=== PATIENT | female | born 1965 | race American Indian/Alaskan Native ===

== ENCOUNTER 2022-05-12 22:41 | Emergency (ER) | payer MEDICAID ==
[2022-05-13] MEDS ORDERED: ONDANSETRON 4 MG/2 ML INJ IV ONE (04:52)
[2022-05-13 05:02] LABS: Basophils % (Auto) 0.5 % (0.0-1.8); Eosinophils % (Auto) 0.4 % (0.0-4.3); Hemoglobin 10.1 gm/dl (10.1-14.3); Lymphocytes # (Auto) 0.5 K/mm3 (1.2-5.4); Lymphocytes % (Auto) 5.7 % (13.4-35.0); Mean Corpuscular HGB Conc 34 % (30-34); Mean Corpuscular Volume 91 fl (79-97); Monocytes # (Auto) 0.7 K/mm3 (0.0-0.8); Monocytes % (Auto) 7.5 % (0.0-7.3); Platelet Count 687 K/mm3 (140-440); Red Blood Count 3.29 M/mm3 (3.65-5.03); Red Cell Distribution Width 18.2 % (13.2-15.2)
[2022-05-13 05:23] LABS: Bacteria,Urine 4+ /HPF (Negative); Mucus,Urine 1+ /HPF
[2022-05-13 05:26] LABS: Bilirubin,Urine Negative (Negative); Blood,Urine 2+ (Negative); Color,Urine Straw (Yellow); Protein,Urine 300 mg/dL mg/dL (Negative)
[2022-05-13 06:30] LABS: Albumin 3.9 g/dL (3.9-5); BUN/Creatinine Ratio 11; Blood Urea Nitrogen 15 mg/dL (7-17); Calcium 9.6 mg/dL (8.4-10.2); Hemolysis Index 2
[2022-05-13 06:36] LABS: Alanine Aminotransferase < 5 units/L (7-56)
[2022-05-13] MEDS ORDERED: cefTRIAXone/NS 1 GM/50 ML 1 GM/50 ML BAG IV ONE (06:37)
[2022-05-13] MEDS ORDERED: SODIUM CHLORIDE 0.9% 500 ML 500 ML IV ONE (06:37)
[2022-05-13] MEDS ORDERED: FAMOTIDINE 20 MG/2 ML INJ IV ONE (06:38)
[2022-05-13] MEDS ORDERED: SODIUM CHLORIDE 0.9% 1000 ML 1,000 ML IV ONE (07:58)
[2022-05-13] MEDS ORDERED: LORazepam 2 MG/ML VIAL IV ONE (08:00)
--- NOTE | 2022-05-13 10:15 | Emergency Department Report ---
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 Patient has had decreased appetite for last 2 weeks with vomiting and p.o. intolerance x1 week. She also reports a lot of belching and GERD symptoms. Mild lower abdominal pain reported without aggravating or alleviating factors. Decreased bowel movements reported. She denies fever or hematemesis. Patient received Zofran prior to my evaluation and reports improvement in nausea and vomiting. Patient has not had chemotherapy in the last 5 to 6 weeks and is not currently undergoing any active cancer treatment. Patient's doctors are affiliated with [facility]. Patient is scheduled for PET scan on May 23. - Related Data Previous Rx's Medication Instructions Recorded Last Taken Type Famotidine [Pepcid] 20 mg PO BID #60 tablet 05/13/22 Unknown Rx Ondansetron [Zofran Odt] 4 mg PO Q8HR PRN #20 tab.rapdis 05/13/22 Unknown Rx Promethazine [Phenergan] 25 mg CO Q6HR PRN #20 supp.rect 05/13/22 Unknown Rx cefUROXime [Ceftin] 500 mg PO Q12H 7 Days tab 05/13/22 Unknown Rx Allergies Allergy/AdvReac Type Severity Reaction Status Date / Time Sulfa (Sulfonamide Allergy Unknown Verified 05/13/22 00:10 Antibiotics) ED Review of Systems ROS: Stated complaint: ACID REFLUX/LOSS OF APPETITE Other details as noted in HPI Comment: All other systems reviewed and negative ED Past Medical Hx - Past Medical History Previous Medical History?: Yes Hx of Cancer: Yes (CERVICAL CANCER) - Surgical History Past Surgical History?: Yes Additional Surgical History: 03/14/2022 hysterectomy, bladder resection with urostomy diversion secondary to bladder fistula - Social History Smoking Status: Unknown if ever smoked Substance Use Type: None - Medications Home Medications: Home Medications Medication Instructions Recorded Confirmed Last Taken Type Famotidine [Pepcid] 20 mg PO BID #60 tablet 05/13/22 Unknown Rx Ondansetron [Zofran Odt] 4 mg PO Q8HR PRN #20 tab.rapdis 05/13/22 Unknown Rx Promethazine [Phenergan] 25 mg CO Q6HR PRN #20 supp.rect 05/13/22 Unknown Rx cefUROXime [Ceftin] 500 mg PO Q12H 7 Days tab 05/13/22 Unknown Rx ED Physical Exam - General Limitations: No Limitations - Other Other exam information: General: No acute distress Head: Atraumatic Eyes: normal appearance ENT: Moist mucous membranes Neck: Normal appearance, no midline tenderness Chest: Clear to auscultation bilaterally CV: Regular rate and rhythm Abdomen: Soft, normal bowel sounds, mild suprapubic tenderness, nondistended, no rebound or guarding. Urostomy with clear urine Back: Normal inspection Extremity: Normal inspection, full range of motion Neuro: Alert O x 3, no facial asymmetry, speech clear, no gross motor sensory deficit Psych: Appropriate behavior Skin: No rash ED Course Vital Signs 05/12/22 05/13/22 05/13/22 23:58 04:53 05:01 Temperature 98.6 F Pulse Rate 89 86 89 Respiratory 16 15 23 Rate Blood Pressure 129/78 137/78 Blood Pressure 129/78 137/86 [Right] O2 Sat by Pulse 100 98 99 Oximetry 05/13/22 05/13/22 05/13/22 05:31 06:01 06:31 Temperature Pulse Rate 88 84 85 Respiratory 17 17 19 Rate Blood Pressure 137/78 143/68 143/68 Blood Pressure [Right] O2 Sat by Pulse 99 98 98 Oximetry 05/13/22 05/13/22 05/13/22 07:01 07:31 08:01 Temperature Pulse Rate 82 90 88 Respiratory 16 23 20 Rate Blood Pressure 133/71 133/71 132/76 Blood Pressure [Right] O2 Sat by Pulse 99 99 99 Oximetry 05/13/22 05/13/22 05/13/22 08:31 09:01 09:31 Temperature Pulse Rate 84 84 85 Respiratory 14 22 16 Rate Blood Pressure 132/76 128/72 128/72 Blood Pressure [Right] O2 Sat by Pulse 100 99 99 Oximetry 05/13/22 05/13/22 05/13/22 10:01 10:51 11:01 Temperature Pulse Rate 86 99 H 98 H Respiratory 17 23 17 Rate Blood Pressure 119/57 119/57 119/57 Blood Pressure [Right] O2 Sat by Pulse 98 97 Oximetry 05/13/22 05/13/22 05/13/22 11:31 12:01 12:31 Temperature Pulse Rate 76 88 84 Respiratory 14 17 20 Rate Blood Pressure 119/57 119/57 119/57 Blood Pressure [Right] O2 Sat by Pulse 97 100 100 Oximetry 05/13/22 05/13/22 13:01 13:31 Temperature Pulse Rate 90 83 Respiratory 19 19 Rate Blood Pressure 119/57 119/57 Blood Pressure [Right] O2 Sat by Pulse 99 99 Oximetry - Consultations Consultation #1: 05/13/22 12:26 case d/w [facility] transfer service ([facility]). They are on diversion. awaiting food photographer onc call back for consult 1:39 case d/w [facility] awaiting food photographer onc call back 05/13/22 14:32 Case d/w Dr Borrego food photographer/onc at [facility] (reviewed Elia record in [facility]) who suggest possible thoracentiss for pleural effusion to hasten accumulation. Suggests f/u with pt's oncologist if symptoms improved. ED Medical Decision Making - Lab Data Result diagrams: 05/13/22 04:46 05/13/22 Unknown Lab Results 05/13/22 05/13/22 05/13/22 Range/Units 04:46 04:53 Unknown WBC 9.6 (4.5-11.0) K/mm3 RBC 3.29 L (3.65-5.03) M/mm3 Hgb 10.1 (10.1-14.3) gm/dl Hct 30.0 L (30.3-42.9) % MCV 91 (79-97) fl MCH 31 (28-32) pg MCHC 34 (30-34) % RDW 18.2 H (13.2-15.2) % Plt Count 687 H (140-440) K/mm3 Lymph % (Auto) 5.7 L (13.4-35.0) % [place] % (Auto) 7.5 H (0.0-7.3) % Eos % (Auto) 0.4 (0.0-4.3) % Baso % (Auto) 0.5 (0.0-1.8) % Lymph # (Auto) 0.5 L (1.2-5.4) K/mm3 [place] # (Auto) 0.7 (0.0-0.8) K/mm3 Eos # (Auto) 0.0 (0.0-0.4) K/mm3 Baso # (Auto) 0.0 (0.0-0.1) K/mm3 Seg Neutrophils % 85.9 H (40.0-70.0) % Seg Neutrophils # 8.2 H (1.8-7.7) K/mm3 Sodium 134 L (137-145) mmol/L Potassium 4.0 (3.6-5.0) mmol/L Chloride 96.8 L (98-107) mmol/L Carbon Dioxide 22 (22-30) mmol/L Anion Gap 19 mmol/L BUN 15 (7-17) mg/dL Creatinine 1.4 H (0.6-1.2) mg/dL Estimated GFR 39 ml/min BUN/Creatinine Ratio 11 % Glucose 91 (65-100) mg/dL Calcium 9.6 (8.4-10.2) mg/dL Total Bilirubin 0.70 (0.1-1.2) mg/dL AST 10 (5-40) units/L ALT < 5 L (7-56) units/L Alkaline Phosphatase 57 (35-129) units/L Total Protein 7.2 (6.3-8.2) g/dL Albumin 3.9 (3.9-5) g/dL Albumin/Globulin Ratio 1.2 % Lipase 12 L (13-60) units/L Urine Color Straw (Yellow) Urine Turbidity Cloudy (Clear) Urine pH 7.0 (5.0-7.0) Ur Specific [place] 1.010 (1.003-1.030) Urine Protein 300 mg/dl (Negative) mg/dL Urine Glucose (UA) Negative (Negative) mg/dL Urine Ketones 15 (Negative) mg/dL Urine Blood 2+ (Negative) Urine Nitrite Negative (Negative) Ur Reducing Substances Not Reportable Urine Bilirubin Negative (Negative) Urine Ictotest Not Reportable Urine Urobilinogen 1.0 (<2.0) mg/dL Ur Leukocyte Esterase Large (Negative) Urine WBC (Auto) 166.0 H (0.0-6.0) /HPF Urine RBC (Auto) 23.0 (0.0-6.0) /HPF U Epithel Cells (Auto) 1.0 (0-13.0) /HPF Urine Bacteria (Auto) 4+ (Negative) /HPF Urine Mucus 1+ /HPF - Radiology Data Radiology results: report reviewed CT ABDOMEN AND PELVIS WITH CONTRAST HISTORY: abd pain, n/v, urostomy, cervical ca, s/p hysterct. COMPARISON: None TECHNIQUE: Helical CT images of the abdomen and pelvis were obtained following administration of intravenous contrast. Sagittal and coronal reformatted images were reviewed. All CT scans at this location are performed using CT dose reduction for ALARA by means of automated exposure control. CONTRAST: Omnipaque 350 100 ml of intravenous contrast administered. FINDINGS: Abdomen/pelvis: There is moderate ascites in the upper abdomen which appears to be loculated. No evidence for free air. Hysterectomy changes are suspected. The bladder is not confidently identified. The bladder may be collapsed or surgically removed. Please correlate with history. There is moderate bilateral hydronephrosis with no obvious obstructing lesion in the distal ureters. The renal parenchyma is unremarkable on CT. There are scattered cysts in the liver with the largest measuring 2.9 cm and the left hepatic lobe. No parenchymal liver disease or focal mass. There is moderate sludge and at least 2 small calcified gallstones in the gallbladder. No findings to suggest acute cholecystitis. The biliary ducts are unremarkable. The pancreas, spleen and adrenal glands are unremarkable. There is no evidence for bowel obstruction, focal inflammation or obvious mass. Diverting ileostomy is suspected in the right lower quadrant. Please correlate with surgical history. The vascular structures are patent. No adenopathy is identified. Lungs/bones: Moderate to large layering right pleural effusion and trace left pleural effusion are identified. Atelectatic changes are noted at the right lung base. No obvious infiltrate or nodule. Heart size is normal. No suspicious bony lesion is detected. IMPRESSION: Moderate ascites is identified throughout the upper abdomen which appears loculated. Surgical changes as described above. Please correlate with the patient's surgical history. There are no exams for comparison at this facility. Moderate bilateral hydronephrosis is evident without discrete obstructing lesion. Scattered liver cysts. Bilateral pleural effusions, right greater than left. CHEST 2 VIEWS INDICATION / CLINICAL INFORMATION: pleural effusions on ct. COMPARISON: CT abdomen and pelvis performed earlier today FINDINGS: SUPPORT DEVICES: Right [id number] appears in adequate position terminating near the cavoatrial junction HEART / MEDIASTINUM: No significant abnormality. LUNGS / PLEURA: Moderate right pleural effusion and trace left pleural effusion are identified. There is compressive atelectasis at the right lung base. No convincing infiltrate. No pneumothorax. ADDITIONAL FINDINGS: No significant additional findings. IMPRESSION: 1. Bilateral pleural effusions as described. - Medical Decision Making 57-year-old female who presents with decreased appetite and nausea and vomiting feels much better after receiving IV Zofran and IV fluids. Patient also treated with IV Rocephin for possible UTI although likely contaminated sample given that she has a urostomy bag. No signs of leukocytosis, fever, or vital sign abnormality. CAT scan and chest x-ray reveal possible loculated abdominal ascites and right pleural effusion. I did not receive a call back from [facility] ATTENDANT oncologist therefore Case discussed with GAME ATTENDANT oncologist at [facility]. Patient does not require admission and transfer at this time for GAME ATTENDANT related complaint and suggest consultation with pulmonology to determine if patient requires thoracentesis. Patient is completely asymptomatic from right pleural effusion and does not have hypoxia, tachypnea, chest pain, or shortness of breath. She would therefore be referred to follow-up with her physicians at [facility]. She will be provided a copy of a disc and imaging reports. Cephalosporin will be prescribed for urine Critical Care Time: No Critical care attestation.: If time is entered above; I have spent that time in minutes in the direct care of this critically ill patient, excluding procedure time. ED Disposition Clinical Impression: Nausea and vomiting, Cervical cancer, Ascites, Pleural effusion, right, UTI (ur inary tract infection) Disposition: 01 HOME / SELF CARE / HOMELESS Is pt being admited?: No Does the pt Need Aspirin: No Condition: Stable Instructions: Nausea and Vomiting, Adult, Ascites, Pleural Effusion Additional Instructions: Take the medication as prescribed. Follow-up with your doctor or doctor/clinic provided. Return if symptoms worsen as indicated by your discharge instructions. Prescriptions: cefUROXime [Ceftin] 500 mg PO Q12H 7 Days tab Famotidine [Pepcid] 20 mg PO BID #60 tablet Promethazine [Phenergan] 25 mg CO Q6HR PRN #20 supp.rect PRN Reason: Nausea And Vomiting Ondansetron [Zofran Odt] 4 mg PO Q8HR PRN #20 tab.rapdis PRN Reason: Nausea And Vomiting Referrals: your, oncologist [Other] - 2-3 Days Time of Disposition: 15:15
[2022-05-13 10:56] VITALS: BP 119/57
--- NOTE | 2022-05-13 11:20 | Cat Scan Report ---
CT ABDOMEN AND PELVIS WITH CONTRAST HISTORY: abd pain, n/v, urostomy, cervical ca, s/p hysterct. COMPARISON: None TECHNIQUE: Helical CT images of the abdomen and pelvis were obtained following administration of intr avenous contrast. Sagittal and coronal reformatted images were reviewed. [facility] are [facility] using CT dose reduction for ALARA by means of automated exposure control. CONTRAST: Omnipaque 350 100 ml of intravenous contrast administered. FINDINGS: Abdomen/pelvis: There is moderate ascites in the upper abdomen which appears to be loculated. No shaila dence for free air. Hysterectomy changes are suspected. The bladder is not confidently identified. The bladder may be col lapsed or surgically removed. Please correlate with history. There is moderate bilateral hydronephrosis with no obvious obstructing lesion in the distal ureters. The renal parenchyma is unremarkable on CT. There are scattered cysts in the liver with the largest measuring 2.9 cm and the left hepatic lobe. N o parenchymal liver disease or focal mass. There is moderate sludge and at least 2 small calcified ga llstones in the gallbladder. No findings to suggest acute cholecystitis. The biliary ducts are unrema rkable. The pancreas, spleen and adrenal glands are unremarkable. There is no evidence for bowel obstruction, focal inflammation or obvious mass. Diverting ileostomy i s suspected in the right lower quadrant. Please correlate with surgical history. The vascular structures are patent. No adenopathy is identified. Lungs/bones: Moderate to large layering right pleural effusion and trace left pleural effusion are i dentified. Atelectatic changes are noted at the right lung base. No obvious infiltrate or nodule. Hea rt size is normal. No suspicious bony lesion is detected. IMPRESSION: Moderate ascites is identified throughout the upper abdomen which appears loculated. Surgical changes as described above. Please correlate with the patient's surgical history. There are no exams for comparison at this facility. Moderate bilateral hydronephrosis is evident without discrete obstructing lesion. Scattered liver cysts. Bilateral pleural effusions, right greater than left. Signer Name: Saad Campbell Jr, MD Signed: 05/13/2022 11:15 AM Workstation Name: [id number]
--- NOTE | 2022-05-13 12:10 | XRay Report ---
CHEST 2 VIEWS INDICATION / CLINICAL INFORMATION: pleural effusions on ct. COMPARISON: CT abdomen and pelvis performed earlier today FINDINGS: SUPPORT DEVICES: Right [id number] appears in adequate position terminating near the cavoatrial alcides ction HEART / MEDIASTINUM: No significant abnormality. LUNGS / PLEURA: Moderate right pleural effusion and trace left pleural effusion are identified. There is compressive atelectasis at the right lung base. No convincing infiltrate. No pneumothorax. ADDITIONAL FINDINGS: No significant additional findings. IMPRESSION: 1. Bilateral pleural effusions as described. Signer Name: Saad Campbell Jr, MD Signed: 05/13/2022 12:05 PM Workstation Name: [id number]
== END 2022-05-13 15:45 | disposition home or self-care (01) ==
LOC: ED 22:41
DX: N39.0 Urinary tract infection, site not specified (principal); R11.2 Nausea with vomiting, unspecified; J90 Pleural effusion, not elsewhere classified; Z85.41 Personal history of malignant neoplasm of cervix uteri; Z88.1 Allergy status to other antibiotic agents; Z79.899 Other long term (current) drug therapy
CPT/HCPCS: 36415; 71046; 74177; 80053; 81001; 83690; 85025; 96365; 96375; 99284; J0696; J2405; J3490; J7030; Q9967; J2060